=== PATIENT | male | born 1945 | race African-American/Black ===

== ENCOUNTER 2022-11-23 10:28 | Day surgery (SDC) | payer OTHER ==
[2022-11-23 10:56] LABS: Potassium 3.4 mmol/L (3.5-5.1)
[2022-11-23] MEDS ORDERED: Ringers Lactate 1,000 ML IV ONE (10:59)
[2022-11-23 11:02] LABS: Absolute Lymphocytes (CBC) 0.8 K/uL (0.7-4.9); Hematocrit 43.1 % (39.6-49.0); Lymphocytes % 3.7 % (15.3-44.8); MCV 94.4 fL (80-100); MPV 7.5 fL (7.6-11.3); RBC Red Blood Cell Count 4.56 M/uL (4.33-5.43)
[2022-11-23] MEDS ORDERED: FENTANYL CITR 100 MCG/2 ML ONE (11:36)
[2022-11-23] MEDS ORDERED: KETOROLAC 30 MG/ML INJ ONE (11:36)
[2022-11-23] MEDS ORDERED: propofoL 200 MG/20 ML VIAL IV ONE (11:36)
[2022-11-23] MEDS ORDERED: LIDOCAINE 2% MPF 5 ML VIAL ONE (11:36)
[2022-11-23] MEDS ORDERED: MIDAZOLAM HCL 2 MG/2 ML INJ ONE (11:37)
[2022-11-23] MEDS ORDERED: ONDANSETRON 4 MG/2 ML VIAL ONE (11:37)
[2022-11-23] MEDS: CEFAZOLIN SODIUM 1 GM/VIAL ONE ×3 (12:07→12:40)
[2022-11-23] MEDS ORDERED: CIPROFLOXACIN 400mg IV 400 MG/200 ML BAG IV ONE (12:29)
[2022-11-23 13:09] LABS: Platelet Estimate ADEQ
[2022-11-23 13:11] LABS: Blood Morphology Comment NOT SEEN (NOT SEEN)
--- NOTE | 2022-11-23 13:14 | RAD REPORT ---
EXAM DESCRIPTION: RAD - Chest Pa And Lat (2 Views) - 11/23/2022 11:17 am CLINICAL HISTORY: PRE OP COMPARISON: Two view chest 04/20/2016 TECHNIQUE: Frontal and lateral views of the chest were obtained. FINDINGS: The lungs are clear of a peripheral mass or consolidation. Interstitial pattern is similar to the prior examination. Pulmonary arteries are prominent with no hilar mass or lymphadenopathy rocio ntifiable. This is also a stable presentation for the patient. Trachea is in the midline. Heart size is normal and central vasculature is within normal limits. N o pleural effusion or pneumothorax seen. No acute bone finding. Degenerative changes and thoracic sp ine scoliotic changes are noted and stable. No aortic abnormality. IMPRESSION: No acute cardiopulmonary process. No significant change from comparison study.
--- NOTE | 2022-11-23 13:19 | EKG ---
Test Date: 2022-11-23 Test Time: 10:44:57 Computer Forensics Technician: SOBEIDA MEASUREMENT RESULTS: Intervals: Rate: 111 AL: 156 QRSD: 92 QT: 338 QTc: 459 Steens: P: 84 AL: 156 QRS: -76 T: 81 INTERPRETIVE STATEMENTS: Sinus tachycardia Left axis deviation Pulmonary disease pattern Abnormal ECG No previous ECG available for comparison Electronically Signed On 11-23-22 13:15:46 INCUBATOR MACHINE OPERATOR by Chinedu Molina
[2022-11-23] MEDS ORDERED: CODEINE 30MG/APAP 300MG TAB ONE (14:17)
--- NOTE | 2022-11-23 14:36 | P.BOP ---
Preoperative diagnosis: infected sub Q mass, cellulitis, abscess, necrotic wound Postoperative diagnosis: same Primary procedure: Excisional biopsy of infected subQ mass with abscess drainage [id number] Estimated blood loss: <20cc Specimen: mass, culture Anesthesia: General Complications: None Drain(s): Other (NS packing) Transferred to: Recovery Room Condition: Good
[2022-11-23 15:00] VITALS: BP 123/77; TEMP 97.8; O2SAT 96
--- NOTE | 2022-11-23 19:02 | OP ---
Date of Procedure: 11/23/2022 Surgeon: Vinh Good MD Preoperative Diagnosis: Infected subcutaneous mass with abscess and cellulitis on the upper back. Postoperative Diagnosis: Infected subcutaneous mass with abscess and cellulitis on the upper back. Procedure: Incision and drainage of an abscess complex abscess with debridement of necrotic tissue a bout 13 x 14 x 4.5 cm. Findings: Infected mass was all the way down to muscle, does not penetrate the muscle. Large comple x abscess with different cavities that were explored. Purulent discharge was cultured. Complications: None. Packing: Kerlix roll. Indication: This is the case of a male, who comes to us with an infected mass, seen by the primary d willis who expedite the process to see in my office, advised the importance of excisional biopsy of th at mass with drainage of an abscess. We saw him few hours ago. We were able to accommodate this marquis e since he is going to have it done under anesthetic. The benefits, alternatives, and risks of excis ional biopsy of infected subcutaneous mass with drainage of an abscess fully explained, which include , but not limited to infection, bleeding, damage to adjacent structures, anesthesia complication, non healing wound, [place], and even . He also understands this may not relieve any symptoms. He might need more than one surgical intervention. He understands he needs wound care. He signed a consent. Also importance of following up with the primary doctor leukocytosis already. We started antibiotics previously. He was advised the importance of taking them. Procedure In Detail: The patient was brought to the operating room, placed in supine position. Anes thesia was done without complication. Right upper back was prepped and draped in the usual sterile f ashion. The patient has necrotic tissue from the inflammatory mass in that area. All that necrotic tissue was removed with even a cavity behind, which was about 13 x 14 x 4.5 cm deep. This goes all t he way down to muscle, does not penetrate the muscle through and through. The area was irrigated, he mostasis was obtained, cultures were obtained and after that, we packed the area with wet-to-dry dres sing after putting a local anesthetic. The patient tolerated the procedure well. The patient was se nt to recovery in stable condition. JERRY/LASHONDA Voice ID: [id number] Report ID: [id number]
--- NOTE | 2022-11-23 19:11 | DS ---
Date of Discharge: 11/23/2022 Diagnosis: Infected back subcutaneous mass with abscess. Procedure: Excisional biopsy of infected subcutaneous mass with abscess drainage. Disposition: Home. Plan: We discussed the case with the family. We [facility] They were kind enough to accommodate him for this Saturday, which is the first time that carmen zarate. They can do the dressing changes normal saline on Saturday. If they have some issues, t patito cannot change it. Then the maximum, he can wait until Saturday. When he comes to us, we can help. He also has the chance of coming to the ER if they have any questions. The prescription was already called. They were advised the importance of him taking that prescription. JERRY/LASHONDA Voice ID: [id number] Report ID: [id number]
== END 2022-11-23 14:40 | disposition home or self-care (01) ==
LOC: OR 10:28
PROVIDERS: ATTEND Surgery
PROC: 0JB70ZZ Excision of Back Subcutaneous Tissue and Fascia, Open Approach (ICD-10-PCS; principal; 2022-11-23 12:30)
DX: L72.0 Epidermal cyst (principal); I96 Gangrene, not elsewhere classified; L03.312 Cellulitis of back [any part except buttock and flank]; L02.212 Cutaneous abscess of back [any part, except buttock and flank]
CPT/HCPCS: 93005; 87070; 85025; 80048; 36415; 87205; 82947; 88305; 87075; 71046; 11406; J2704; J2001; J2250; J3010; J7120; J2405; J0744; 88304; J0690